=== PATIENT | male | born 1945 | race Caucasian/White ===

== ENCOUNTER 2018-01-25 05:55 | Emergency (ER) | payer MEDICARE ==
[~2018-01-25] VITALS: Ht 172.7 cm; Wt 63.5 kg
[2018-01-25] MEDS ORDERED: LOSA50 PO (06:05)
[2018-01-25] MEDS ORDERED: Percocet 5-3251 EACH PO (07:14)
== END 2018-01-25 07:22 | disposition home or self-care (01) ==
LOC: ER 05:55
DX: S52.502A Unspecified fracture of the lower end of left radius, initial encounter for closed fracture (principal); S52.602A Unspecified fracture of lower end of left ulna, initial encounter for closed fracture; I10 Essential (primary) hypertension; F17.210 Nicotine dependence, cigarettes, uncomplicated; Z79.899 Other long term (current) drug therapy; W01.0XXA Fall on same level from slipping, tripping and stumbling without subsequent striking against object, initial encounter
CPT/HCPCS: 29105; 73110; 99283

== ENCOUNTER → 2019-01-22 | Outpatient (CLI) | payer MEDICARE, OTHER ==
[~2019-01-22] MED LIST: ALBU90OI61 INH; Aspirin EC81 MG PO; Cod Liver Oil1 EAC2 PO; LOSA50 PO; LOSARTAN-HCTZ1 EAC2 PO; Percocet 5-3251 EACH PO; TUDORZA PRESS400 MCG INH
== END ==
LOC: LAB 16:19 → LAB SHORT 16:19
DX: L72.0 Epidermal cyst (principal)
CPT/HCPCS: 87070; 87205

== ENCOUNTER 2019-01-27 08:33 | Inpatient (IN) | payer MEDICARE, OTHER ==
[~2019-01-27] VITALS: Ht 170.2 cm; Wt 62.0 kg
[~2019-01-27 08:33] MED LIST changes: -ALBU90OI61 INH; -Aspirin EC81 MG PO; -Cod Liver Oil1 EAC2 PO; -LOSARTAN-HCTZ1 EAC2 PO; -TUDORZA PRESS400 MCG INH
[2019-01-27] MEDS ORDERED: LOSARTAN-HCTZ1 EAC2 PO (08:48)
[2019-01-27 09:19] LABS: BASOPHILS ABSOLUTE AUTO 0.04 K/mm3 (0.00-0.23); BASOPHILS PERCENT AUTO 0 % (0-2); EOSINOPHILS ABSOLUTE AUTO 0.11 K/mm3 (0.00-0.68); EOSINOPHILS PERCENT AUTO 1 % (0-6); Hematocrit 48.2 % (37.0-53.0); IMMATURE GRAN ABSOLUTE AUTO 0.14 K/mm3 (0.00-0.10); IMMATURE GRAN PERCENT AUTO 1 % (0-1); LYMPHOCYTES ABSOLUTE AUTO 1.16 K/mm3 (0.84-5.20); LYMPHOCYTES PERCENT AUTO 7 % (21-46); MONOCYTES ABSOLUTE AUTO 1.53 K/mm3 (0.16-1.47); MONOCYTES PERCENT AUTO 9 % (4-13); Mean Corpuscular HGB 31.1 pg (26.0-34.0); Mean Corpuscular HGB Conc 33.2 g/dL (31.5-36.5); Mean Corpuscular Volume 94 fL (80-100); NEUTROPHILS PERCENT AUTO 83 % (41-73); Platelet Count 445 K/mm3 (150-400); RDW Coefficient Variation 13.2 % (11.7-14.2); RDW Standard Deviation 45.3 fL (35.1-46.3); Red Blood Cell Count 5.15 M/mm3 (4.30-5.90); White Blood Cell Count 17.58 K/mm3 (4.00-11.30)
[2019-01-27 09:27] LABS: Anion Gap 8 mmol/L (6-16); Blood Urea Nitrogen 11 mg/dL (8-24); Bun/Creatinine Ratio 21.7 (12.0-20.0); CO2, Blood 28 mmol/L (21-32); Calcium, Blood 8.4 mg/dL (8.5-10.1); Chloride, Blood 97 mmol/L (98-108); Creatinine, Blood 0.51 mg/dL (0.60-1.20); Glomerular Filtration Rate >60 (60-); Glucose, Blood 111 mg/dL (70-99); Sodium, Blood 133 mmol/L (136-145)
[2019-01-27] MEDS ORDERED: ALBU90OI61 INH (12:01)
[2019-01-27] MEDS ORDERED: Aspirin EC81 MG PO (12:02)
[2019-01-27] MEDS ORDERED: TUDORZA PRESS400 MCG INH (12:03)
[2019-01-27] MEDS ORDERED: Cod Liver Oil1 EAC2 PO (12:12)
--- NOTE | 2019-01-27 14:00 | NUR ---
PT HAS ABRASION TO R KNEE, ABX OINTMENT AND BANDAID APPLIED. PT HAS "CYST REMOVED" TO L BACK/SHOLDER AREA THAT WAS CLEANED AND BANDAID PLACED. TEDS PLACED.
--- NOTE | 2019-01-27 14:19 | NUR ---
PT REQUEST TO BE FULL CODE. DR DIXON. CONFIRMED WITH PT THAT HE DOES WANT TO FULL TREATMENT INCLUDING CHEST COMPRESSIONS ECT. PT REPORTED YES HE WANTS FULL TREATMENT. SEE ORDERS.
--- NOTE | 2019-01-27 17:05 | NUR ---
OTHER KAITLIN Whitmore GIVEN REPORT AND IS ASSUMING CARE OF PT AT THIS TIME.
--- NOTE | 2019-01-27 19:25 | NUR ---
SHIFT SUMMARY PT A&OX4 AND DOING WELL, DARYL IN THIS AFTERNOON FOR CONSULT, PLANS SURGERY TOMORROW. STATES PAIN NOT MANAGED WITH 1 OXYCODONE, SO 2 GIVEN THIS TIME AND ENCOURAGED REPOSITIONING. CURRENTLY TOLERATING REGULAR DIET.
--- NOTE | 2019-01-28 04:10 | NUR ---
CHLORHEXIDINE WIPES TO RIGHT HIP AT THIS TIME
[2019-01-28 04:53] LABS: BASOPHILS ABSOLUTE AUTO 0.03 K/mm3 (0.00-0.23); BASOPHILS PERCENT AUTO 0 % (0-2); EOSINOPHILS PERCENT AUTO 2 % (0-6); Hematocrit 44.6 % (37.0-53.0); IMMATURE GRAN ABSOLUTE AUTO 0.04 K/mm3 (0.00-0.10); IMMATURE GRAN PERCENT AUTO 0 % (0-1); LYMPHOCYTES ABSOLUTE AUTO 1.39 K/mm3 (0.84-5.20); LYMPHOCYTES PERCENT AUTO 13 % (21-46); MONOCYTES ABSOLUTE AUTO 1.47 K/mm3 (0.16-1.47); MONOCYTES PERCENT AUTO 14 % (4-13); Mean Corpuscular HGB 30.9 pg (26.0-34.0); Mean Corpuscular HGB Conc 33.6 g/dL (31.5-36.5); Mean Corpuscular Volume 92 fL (80-100); Mean Platelet Volume 9.7 fL (9.1-12.4); NEUTROPHILS ABSOLUTE AUTO 7.54 K/mm3 (1.96-9.15); NEUTROPHILS PERCENT AUTO 71 % (41-73); Platelet Count 360 K/mm3 (150-400); RDW Coefficient Variation 13.4 % (11.7-14.2); RDW Standard Deviation 45.5 fL (35.1-46.3); Red Blood Cell Count 4.86 M/mm3 (4.30-5.90); White Blood Cell Count 10.67 K/mm3 (4.00-11.30)
[2019-01-28 05:09] LABS: Anion Gap 5 mmol/L (6-16); Blood Urea Nitrogen 11 mg/dL (8-24); Bun/Creatinine Ratio 17.7 (12.0-20.0); CO2, Blood 29 mmol/L (21-32); Chloride, Blood 97 mmol/L (98-108); Creatinine, Blood 0.62 mg/dL (0.60-1.20); Glomerular Filtration Rate >60 (60-); Glucose, Blood 93 mg/dL (70-99); Potassium, Blood 4.1 mmol/L (3.5-5.5); Sodium, Blood 131 mmol/L (136-145)
--- NOTE | 2019-01-28 07:14 | NUR ---
SHIFT SUMMARY PT SCHEDULED FOR SURGERY TODAY FOR RIGHT HIP FX. PT IS A&O, ABLE TO MAKE NEEDS KNOWN. MEDICATED FOR PAIN PER EMAR, PT SLEPT WELL BETWEEN CARES. WIGGLES TOES, ABLE TO ADJUST SELF IN BED WITH MINIMAL ASSIST. NPO AFTER MN IN PREP FOR SURGERY TODAY. WILL CTM UNTIL PASS TO NEXT SHIFT.
--- NOTE | 2019-01-28 17:08 | NUR ---
INTO [facility] VIA BED. HISTORY AND ALLERGIES REVIEWED. NPO STATUS CONFIRMED. LUNGS CLEAR. SATS>90% ON RA. DUONEB GIVEN UPON ARRIVAL TO [facility] PER DR. SHIELDS ORDERS.
--- NOTE | 2019-01-28 17:17 | NUR ---
PT TO SURGERY. HE IS AWAKE, ALERT AND ORIENTED. PAIN IS TOLERABLE AT THIS TIME. CIRC REMAINS WNL.
--- NOTE | 2019-01-28 20:10 | NUR ---
PT BACK FROM OR FOR NAILING OF R HIP. A&0 X4. PT PUT ON 2L OF O2 VIA NC FOR O2 SAT OF 86. O2 UP TO 91-93%. ALL OTHER VS WNL. PT DENIES N/V AND REPORTS 0/10 FOR PAIN.
--- NOTE | 2019-01-29 04:50 | NUR ---
SHIFT SUMMARY: PT POD 1 FOR NAILING OF R HIP. A&O X4. ON 2L OF O2 WITH O2 SATS RANGING FROM 91-93%. PT DENIES USING O2 AT HOME. AQUACEL DRESSING CDI. PAIN MANAGED WITH 10MG OXY. RATING PAIN 0/10. FLUIDS INFUSING. VOIDING IN URINAL. DENIES N/V AND MOISES PO.
--- NOTE | 2019-01-29 16:04 | NUR ---
SUMMARY PATIENT SITTING IN CHIR THROUGHOUT THIS SHIFT. PATIENT DENIES PAIN AND HAS DECLINED ANY PRN PAIN MEDS. MOISES PO FOOD AND FLUID AND VOIDING CLEAR YELLOW URINE. PATIENT ANTICIPATES DISCHARGE TO [facility]
--- NOTE | 2019-01-29 16:13 | NUR ---
01/29/19 1613 Ludivina Barreto CHART VERIFICATIONS, EDITS.
--- NOTE | 2019-01-29 18:56 | NUR ---
SHIFT SUMMARY ASSUMED CARE AT 1615. PT HAS BEEN UP IN CHAIR SINCE ASSUMING CARE. IS TOLERATING DIET WELL. STATES PAIN IS AT A TOLERABLE LEVEL AND DENIES ANY SOB OR NEEDS. WORKED WITH THERAPY TODAY AND EAGERLY WAITING FOR NEXT SESSION. O2 DROPPED DOWN TO 1.5L and tolerating well.
--- NOTE | 2019-01-30 04:23 | NUR ---
SHIFT SUMMARY: PT POD #2 FOR NAILING OF R HIP. PT REPORTS STARTING TO FEEL SOME PAIN T/O LEG. GIVEN 10MG OXY PER EMAR. AMBULATING MILES W/FWW+GB. MOISES ACTIVITY WELL. VOIDING CLEAR YELLOW URINE IN URINAL. SATS SITTING AT 89-91% ON RA. PT ENCOURAGED AND EDUCATED ON USE OF INSCENTIVE SPIROMETER. PT DEMONSTRATED USE. PLAN FOR POSSIBLE DISCHARGE TO [facility] TODAY.
--- NOTE | 2019-01-30 09:50 | NUR ---
DR GALLO RECENTLY HERE.
--- NOTE | 2019-01-30 13:33 | NUR ---
REPORT GIVEN TO [facility] NURSE CLEMENTS PT IS TO BE GOING TO [facility] TODAY.
--- NOTE | 2019-01-30 13:58 | NUR ---
TRANSPORT HERE TO GET PT. PT REPORTED CONTACTING FAMILY [facility]ARLIER TODAY. PT TO GO TO [facility] WITH TRANSPORT. DRESSINGS SENT WITH PT. PAPERWORK SENT WITH PT. PT EATING AND DRINKING. PT HAD BM'S TODAY. PT VOIDING. ENC SMOKING CESSATION.
--- NOTE | 2019-01-30 14:04 | NUR ---
SCRIPT ALSO SENT WITH PAPERWORK.
== END 2019-01-30 14:03 | DRG 482 ==
LOC: ER 08:33 → SURS 10:54
PROVIDERS: Emergency Medicine; Orthopaedic Surgery; ADMIT Hospitalist
PROC: 0QS636Z Reposition Right Upper Femur with Intramedullary Internal Fixation Device, Percutaneous Approach (ICD-10-PCS; principal; 2019-01-28 18:30)
DX: S72.141A Displaced intertrochanteric fracture of right femur, initial encounter for closed fracture (principal); F10.10 Alcohol abuse, uncomplicated; F17.210 Nicotine dependence, cigarettes, uncomplicated; I10 Essential (primary) hypertension; J44.9 Chronic obstructive pulmonary disease, unspecified; W18.30XA Fall on same level, unspecified, initial encounter
CPT/HCPCS: 36415; 71045; 73502; 80048; 82947; 85025; 93005; 93010; 94640; 94760; 97110; 97116; 97162; 99285-25; C1713; J0690; J1100; J1650; J1885; J2250; J2405; J2704; J3010; J7120

== ENCOUNTER 2019-05-14 16:15 | Emergency (ER) | payer OTHER, MEDICARE ==
[~2019-05-14] VITALS: Ht 170.2 cm; Wt 61.2 kg
[~2019-05-14 16:15] MED LIST changes: +ALBU90OI61 INH; +Aspirin EC81 MG PO; +Cod Liver Oil1 EAC2 PO; +LOSARTAN-HCTZ1 EAC2 PO; +TUDORZA PRESS400 MCG INH
[2019-05-14 19:11] LABS: BASOPHILS ABSOLUTE AUTO 0.04 K/mm3 (0.00-0.23); BASOPHILS PERCENT AUTO 0 % (0-2); EOSINOPHILS ABSOLUTE AUTO 0.24 K/mm3 (0.00-0.68); EOSINOPHILS PERCENT AUTO 1 % (0-6); Hematocrit 32.3 % (37.0-53.0); Hemoglobin 9.9 g/dL (13.5-17.5); IMMATURE GRAN ABSOLUTE AUTO 0.23 K/mm3 (0.00-0.10); IMMATURE GRAN PERCENT AUTO 1 % (0-1); LYMPHOCYTES ABSOLUTE AUTO 1.22 K/mm3 (0.84-5.20); LYMPHOCYTES PERCENT AUTO 7 % (21-46); MONOCYTES ABSOLUTE AUTO 1.43 K/mm3 (0.16-1.47); MONOCYTES PERCENT AUTO 8 % (4-13); Mean Corpuscular HGB 23.9 pg (26.0-34.0); Mean Corpuscular HGB Conc 30.7 g/dL (31.5-36.5); Mean Corpuscular Volume 78 fL (80-100); Mean Platelet Volume 9.1 fL (9.1-12.4); NEUTROPHILS ABSOLUTE AUTO 15.68 K/mm3 (1.96-9.15); NEUTROPHILS PERCENT AUTO 83 % (41-73); Platelet Count 459 K/mm3 (150-400); RDW Coefficient Variation 24.8 % (11.7-14.2); RDW Standard Deviation 68.3 fL (35.1-46.3); Red Blood Cell Count 4.14 M/mm3 (4.30-5.90); White Blood Cell Count 18.84 K/mm3 (4.00-11.30)
[2019-05-14 19:33] LABS: Alanine Aminotransfer (ALT/SGP 27 U/L (12-78); Albumin, Blood 2.4 g/dL (3.4-5.0); Albumin/Globulin Ratio 0.6 (0.8-1.8); Alk Phos 96 U/L (50-136); Anion Gap 1 mmol/L (6-16); Aspartate Aminotrans (AST/SGOT 32 U/L (12-37); Bilirubin, Total 0.2 mg/dL (0.1-1.0); Blood Urea Nitrogen 15 mg/dL (8-24); Bun/Creatinine Ratio 30.5 (12.0-20.0); CO2, Blood 27 mmol/L (21-32); Calcium, Blood 7.9 mg/dL (8.5-10.1); Chloride, Blood 110 mmol/L (98-108); Creatinine, Blood 0.49 mg/dL (0.60-1.20); Globulin, Blood 3.7 g/dL (2.2-4.0); Glomerular Filtration Rate >60 (60-); Glucose, Blood 85 mg/dL (70-99); Potassium, Blood 3.7 mmol/L (3.5-5.5); Sodium, Blood 138 mmol/L (136-145); Total Protein, Blood 6.1 g/dL (6.4-8.2)
== END 2019-05-14 20:52 | disposition left against medical advice (07) ==
LOC: ER 16:15
PROVIDERS: Emergency Medicine
DX: S22.43XA Multiple fractures of ribs, bilateral, initial encounter for closed fracture (principal); S01.01XA Laceration without foreign body of scalp, initial encounter; S41.112A Laceration without foreign body of left upper arm, initial encounter; S01.312A Laceration without foreign body of left ear, initial encounter; S61.211A Laceration without foreign body of left index finger without damage to nail, initial encounter; N40.0 Benign prostatic hyperplasia without lower urinary tract symptoms; R59.1 Generalized enlarged lymph nodes; D64.9 Anemia, unspecified; V53.5XXA Driver of pick-up truck or van injured in collision with car, pick-up truck or van in traffic accident, initial encounter; Z79.899 Other long term (current) drug therapy; Z79.82 Long term (current) use of aspirin; I10 Essential (primary) hypertension; J44.9 Chronic obstructive pulmonary disease, unspecified; F17.200 Nicotine dependence, unspecified, uncomplicated
CPT/HCPCS: 12001; 70450; 71260; 72125; 73120; 74177; 80053; 83690; 85025; 86850; 86900; 86901; 90471; 90714; 96360-59; 99284-25; A9270; J7030; Q9967

== ENCOUNTER 2019-05-24 09:03 | Emergency (ER) | payer OTHER, MEDICARE ==
[~2019-05-24] VITALS: Ht 170.2 cm; Wt 63.5 kg
== END 2019-05-24 09:30 | disposition home or self-care (01) ==
LOC: ER 09:03
DX: Z48.817 Encounter for surgical aftercare following surgery on the skin and subcutaneous tissue (principal); I10 Essential (primary) hypertension; Z79.899 Other long term (current) drug therapy; Z79.82 Long term (current) use of aspirin